=== PATIENT | female | born 1945 | race Caucasian/White ===

== ENCOUNTER 2021-01-01 09:59 | Outpatient (RCR) | payer MEDICARE, BC, SELFPAY | END 2021-01-01 23:59 | LOC: IMMUN 09:59 | PROVIDERS: Visit Provider Family Medicine | DX: Z23 Encounter for immunization (principal) | CPT/HCPCS: 0011A; 0012A; 91301 ==

== ENCOUNTER 2021-07-26 07:43 | Emergency (ER) | payer MEDICARE, BC, SELFPAY ==
[2021-07-26 07:43] VITALS: BP 170/74; PULSE 72; RESP 16; TEMP 36.6; O2SAT 97; BMI 42.0
--- NOTE | 2021-07-26 07:57 | CT_ITS ---
We are attempting to reach an attending provider to discuss findings. An addendum with communication details will be sent when the communication is complete. STUDY: CT BRAIN WITHOUT CONTRAST REASON FOR EXAM: Female, 76 years old. Status post fall. RADIATION DOSAGE (If Supplied By Facility): CTDIvol = ( 44.99 ) mGy, DLP = ( 796.11 ) mGycm TECHNIQUE: Transaxial CT imaging of the brain was performed without administration of intravenous contrast material. Individualized dose optimization techniques were used for this CT. COMPARISON: No relevant priors. FINDINGS: Normal soft tissue structures. Normal calvarium. Normal size ventricles and extra-axial spaces for the patient''s age. Questionable small punctate hyperdensity in the left frontal lobe on axial image 26 series 2 could be due to artifact or minimal parenchymal contusion minimal pulmonary contusion is less likely. Normal white matter tracts of the cerebral hemispheres. Normal basal ganglia and thalami. Normal brainstem. Normal cerebellum. There is no intracranial hemorrhage. There are no findings of an acute ischemic infarction. Normal visualized paranasal sinuses. CT/Brain/Head without Contrast IMPRESSION: Questionable punctate hemorrhagic contusion or artifact in the left frontal lobe. Follow-up exam is recommended. Electronically Signed: Marcial Bergeron MD at 8:34 EDT Tel , Service support ,
--- NOTE | 2021-07-26 07:57 | CT_ITS ---
STUDY: CT FACIAL BONES WITHOUT CONTRAST REASON FOR EXAM: Female, 76 years old. Fall RADIATION DOSAGE (If Supplied By Facility): CTDIvol = ( 29.38 ) mGy, DLP = ( 503.38 ) mGycm TECHNIQUE: The patient was scanned in a multi detector CT scanner. Sagittal and coronal images were reconstructed. Individualized dose optimization techniques were used for this CT. COMPARISON: None. FINDINGS: Normal soft tissue structures. Normal orbital santiago and orbital contents. Normal nasal bones and anterior nasal spine. Normal facial bones. There is no demonstrated fracture. Normal visualized paranasal sinuses. CT/Sinus/Facial Bone IMPRESSION: Normal unenhanced CT of the facial bones. Electronically Signed: Marcial Bergeron MD at 8:39 EDT Tel , Service support ,
--- NOTE | 2021-07-26 07:57 | RAD_ITS ---
STUDY: X-RAY - LEFT WRIST REASON FOR EXAM: Female, 76 years old. Fall TECHNIQUE: 3 view(s) of the wrist were obtained. COMPARISON: None. FINDINGS: Demineralization of the osseous structures. Normal radiocarpal articulation. Normal distal radioulnar articulation. Normal carpal bones. Normal carpal articulations. Normal carpometacarpal articulation of the thumb. Normal second through fifth carpometacarpal articulations. Normal visualized metacarpal bones. The soft tissue structures are unremarkable. RAD/Wrist min 3 Views IMPRESSION: No demonstrated acute osseous injury. Electronically Signed: Marcial Bergeron MD at 8:40 EDT Tel , Service support ,
--- NOTE | 2021-07-26 07:58 | ED.VIS.FALL ---
HPI HPI - Fall History of Present Illness Chief Complaint: Fall Informant: patient Occured/Mechanism Occurred: Yesterday Mechanism/Context: Yes same level fall Pain/Injury Pain Location: face and upper extremity Current Severity: Mild Maximum Severity: Moderate Narrative Narrative: Patient presents after fall. Patient states she fell yesterday late afternoon after tripping over her granddaughter's shoe. She fell face forward. She states she had a goose egg around her left eye but now seems to be improved. She does still have significant ecchymosis around her left eye. She denies vision changes. She also complains of left wrist pain. She denies loss of consciousness. She is not on anticoagulants. She denies neck pain. [facility] Medical History Asthma Gout Hypertension Home Medications allopurinol 300 mg PO DAILY 07/26/21 [History Last Taken 07/26/21] levothyroxine [Synthroid] 125 mcg PO DAILY 07/26/21 [History Last Taken 07/26/21] lisinopril-hydrochlorothiazide 1 tab PO DAILY 07/26/21 [History Last Taken 07/26/21] Allergy/AdvReac Type Severity Reaction Status Date / Time theophylline [From Theolair] Allergy Rash Verified 07/26/21 07:46 Social History Smoking Status: Never smoker ROS ROS ED Constitutional Constitutional ED: Denies chills or fever(s) Eyes Eyes: Denies change in vision ENT ENT ED: Denies sore throat Cardiovascular Cardiovascular: Denies chest pain Respiratory/Chest Respiratory/Chest: Denies cough or dyspnea Gastrointestinal Gastrointestinal: Denies abdominal pain, diarrhea, nausea or vomiting Genitourinary Genitourinary ED: Denies dysuria Musculoskeletal Musculoskeletal: Denies back pain Integumentary Denies rash Neurologic Neurologic: Denies headache(s) or weakness Allergic/Immunologic Allergic/Immunologic ED: Denies urticaria EXAM Physical Exam Const Vital Signs: 07/26/21 07:43 07/26/21 07:59 Temperature 97.8 F Temperature Source Oral Pulse Rate 72 Respiratory Rate 16 Respiratory Effort Normal Non-Labored Blood Pressure 170/74 H Blood Pressure Mean 106 Pulse Ox 97 Oxygen Delivery Method Room Air Room Air Positive well nourished and well developed General Appearance ED: well developed HEENT Reports normocephalic and head/scalp atraumatic HEENT Narrative: Left periorbital ecchymosis and edema. Extraocular movements fully intact. Neck supple Neck Narrative: No C-spine tenderness. Chest Wall inspection of chest normal and palpation of chest normal Resp normal respiratory effort and clear to auscultation bilaterally Cardio regular rate and regular rhythm GI normal to inspection, nondistended, normoactive bowel sounds Palpation: soft Back/Spine no CVA tenderness Back/Spine Narrative: No midline thoracic or lumbar tenderness. Extremity Extremity Narrative: Mild edema to the left wrist. Good range of motion without difficulty. No tenderness of the hand itself or at the elbow/shoulder. Neuro oriented x3 and no sensory deficits noted Sensorium / Orientation: alert Motor Exam: strength 5/5 throughout Psych mental status grossly normal Skin no rashes or lesions noted MDM MDM MDM Narrative Medical decision making narrative: Left wrist x-rays obtained. CT scan of the facial bones and head obtained. Patient declined anything for pain. Radiography Diagnostic Testing: Radiology Impression Brain CT 07/26/21 07:57 IMPRESSION: Questionable punctate hemorrhagic contusion or artifact in the left frontal lobe. Follow-up exam is recommended. Electronically Signed: Marcial Bergeron MD at 8:34 EDT Tel , Service support , ADDENDUM: 07/26/21 0854 IMPRESSION: Questionable punctate hemorrhagic contusion or artifact in the left frontal lobe. Follow-up exam is recommended. N.B. : The above Results were Read Back by Marcial Bergeron MD to Dr. Gama [id number], and understanding confirmed on 07/26/2021 08:47:57 (ET). Electronically Signed: Marcial Bergeron MD at 8:34 EDT Tel , Service support , Facial/Sinus 07/26/21 07:57 IMPRESSION: Normal unenhanced CT of the facial bones. Electronically Signed: Marcial Bergeron MD at 8:39 EDT Tel , Service support , Wrist X-Ray 07/26/21 07:57 IMPRESSION: No demonstrated acute osseous injury. Electronically Signed: Marcial Bergeron MD at 8:40 EDT Tel , Service support , Treatment and Re-Evaluation Comments:: Left wrist x-ray per my evaluation reveals no obvious fracture. Radiologist interpretation is reviewed. CT facial bones is unremarkable. CT of the head shows a questionable punctate hemorrhagic contusion versus artifact in the left frontal lobe. This is discussed with the patient and family at bedside. She is 18 hours out from the injury. At this time they are not even sure that this is a punctate hemorrhage, this could all be artifact. Patient has no headache. She is not on blood thinners. I advised her that if she were sent to a trauma center after her injury a repeat CT scan done this morning would have been done and she would have been sent home. I do not feel that she needs a trauma center at this time. Patient will be discharged home knowing that if she has further head injury or worsening headache she needs to return immediately. She voices understanding and agreement. I did recommend close follow-up with her primary care physician. Discharge Plan Triage Chief Complaint: Fall ED Provider: Rizwana Dodd Dx/Rx/DC Orders Clinical Impression: Contusion of face, Left wrist sprain, Fall Instructions: ED Mechanical Fall, ED Head Injury (Adult), ED Wrist Sprain Prescriptions: No Action levothyroxine [Synthroid] 125 mcg tablet 125 mcg PO DAILY RF: 0 allopurinol 300 mg tablet 300 mg PO DAILY RF: 0 lisinopril-hydrochlorothiazide 10-12.5 mg tablet 1 tab PO DAILY RF: 0 Primary Care Provider: Yuval Flowers Referrals: Yuval Flowers MD [Primary Care Provider] - 2 Days Disposition Disposition: Home, Self Care
[2021-07-26 10:49] VITALS: BP 139/78; PULSE 81; RESP 20; O2SAT 97
--- NOTE | 2021-07-26 10:50 | ED.RN ---
THIS NURSE REVIEWED D/C INSTRUCTIONS WITH PT. PT VERBALIZED UNDERSTANDING OF INSTRUCTIONS. PT DENIES FURTHER NEEDS OR QUESTIONS AT THIS TIME.
== END 2021-07-26 10:50 | disposition home or self-care (01) ==
PROVIDERS: Emergency Provider Emergency Medicine; PCP Family Medicine
DX: S00.83XA Contusion of other part of head, initial encounter (principal); S63.502A Unspecified sprain of left wrist, initial encounter; W18.09XA Striking against other object with subsequent fall, initial encounter; Y93.9 Activity, unspecified; Y92.89 Other specified places as the place of occurrence of the external cause; Y99.8 Other external cause status; I10 Essential (primary) hypertension; M10.9 Gout, unspecified; J45.909 Unspecified asthma, uncomplicated
CPT/HCPCS: 70450; 70486; 73110; 99282